=== PATIENT | female | born 1955 | race Caucasian/White ===

== ENCOUNTER → 2017-07-13 | Day surgery (SDC) | payer OTHER ==
[~2017-07-13] VITALS: Ht 165.1 cm; Wt 99.3 kg
--- NOTE | 2017-07-13 13:03 | Operative Report ---
Operative/Inv Procedure Report Surgery Date: 07/13/17 Name of Procedure: Hysteroscopic myomectomy Pre-Operative Diagnosis: Postmenopausal bleeding Post-Operative Diagnosis: 2 cm submucous leiomyoma Estimated Blood Loss: scant Surgeon/Hot Tar Roofer Helper: Monica PLUMMER,Rodrigo Phan Anesthesia: tiva Specimens: Leiomyoma Complications: None Condition: Good Operative Indication: Postmenopausal bleeding Operative/Procedure Note Note: The patient was brought to the operating room placed in dorsal supine position a timeout was done with the patient awake. After the induction of anesthesia second timeout was done patient was placed in low stirrups examination under anesthesia was performed a speculum was placed in the vagina the anterior lip of the cervix was grasped with a single-tooth tenaculum. The endocervical canal was dilated and a hysteroscope was introduced noting a 2cm leiomyoma on a fairly broad bace photos were taken. The XL morcilator was introduced through the hysterscope and the 2cm leiomyoma was morcilated a smaller 0.5 cm posterior wall leiomyoma was recected as well, there were no complications an 750cc NS deficit was noted,single-tooth tenaculum was removed and the patient was moved to recovery in good condition sponge instrument and needle counts were correct 3
== END ==
LOC: STS 04:24
DX: C54.1 Malignant neoplasm of endometrium (principal); D25.9 Leiomyoma of uterus, unspecified; I10 Essential (primary) hypertension; E11.9 Type 2 diabetes mellitus without complications; Z79.84 Long term (current) use of oral hypoglycemic drugs; Z87.891 Personal history of nicotine dependence
CPT/HCPCS: 88305; J0131; J2250